=== PATIENT | female | born 1995 | race Caucasian/White ===

== ENCOUNTER 2025-07-12 04:04 | Inpatient (IN) | payer BC, SELFPAY ==
[2025-07-12 04:51] VITALS: BMI 30.4
[2025-07-12] MEDS: LR 1000 IV ×3 (10:30→18:56)
[2025-07-12 11:05] LABS: Hematocrit 40.4 % (37.0-47.0); Hemoglobin 14.5 g/dL (12.0-16.0); Mean Corp Hgb Conc. 35.9 g/dL (33.0-37.0); Mean Corpuscular Volume 88.0 fL (81.0-99.0); Nucleated Red Blood Cells % 0 %; Platelet Count 198 10^3/uL (130-400); Red Cell Dist. Width 12.7 % (11.5-14.5)
[2025-07-12] MEDS: SUBLIMAZE 100 MCG EPIDURAL (11:15)
[2025-07-12] MEDS: FENTANYL/BUPIVACAINE 100 EPIDURAL ×2 (11:16→20:28)
[2025-07-12] MEDS: PITOCIN 30 UNITS/NSS 500 ML IV (19:28)
[2025-07-13] MEDS: PITOCIN 30 UNITS/NSS 500 ML IV (00:01)
[2025-07-13] MEDS: XYLOCAINE-MPF 1% VIAL 30 ML INFIL (00:10)
[2025-07-13] MEDS: TYLENOL 650 MG PO ×4 (03:14→22:05)
[2025-07-13] MEDS: COLACE 100 MG PO ×2 (07:40→20:48)
[2025-07-13] MEDS: PRENATAL PLUS 1 TABLET PO (07:40)
[2025-07-13] MEDS: MOTRIN 600 MG PO ×2 (16:30→22:05)
[2025-07-14] MEDS: TYLENOL 650 MG PO ×4 (04:02→20:15)
[2025-07-14] MEDS: MOTRIN 600 MG PO ×3 (04:02→20:16)
[2025-07-14 04:43] LABS: Hematocrit 34.6 % (37.0-47.0); Hemoglobin 12.2 g/dL (12.0-16.0)
[2025-07-14] MEDS: PRENATAL PLUS 1 TABLET PO (08:55)
[2025-07-14] MEDS: COLACE 100 MG PO ×2 (08:55→20:07)
[2025-07-15] MEDS: TYLENOL 650 MG PO (04:15)
[2025-07-15] MEDS: MOTRIN 600 MG PO ×2 (04:15→10:04)
[2025-07-18 13:39] LABS: Syphilis/T. pallidum Ab Reflex Negative (Negative)
== END 2025-07-15 19:00 | disposition home or self-care (01) | DRG 806 ==
LOC: LDRP 04:04
PROVIDERS: ADMITTING PHYSICIAN Obstetrics & Gynecology; FAMILY PHYSICIAN Physician Assistant Medical; OTHER PHYSICIAN Obstetrics & Gynecology
PROC: 10H07YZ Insertion of Other Device into Products of Conception, Via Natural or Artificial Opening (ICD-10-PCS; 2025-07-12)
PROC: 3E0E77Z Introduction of Electrolytic and Water Balance Substance into Products of Conception, Via Natural or Artificial Opening (ICD-10-PCS; 2025-07-12)
PROC: 10E0XZZ Delivery of Products of Conception, External Approach (ICD-10-PCS; 2025-07-13)
PROC: 0UQG7ZZ Repair Vagina, Via Natural or Artificial Opening (ICD-10-PCS; 2025-07-13)
DX: O48.0 Post-term pregnancy (principal); O71.4 Obstetric high vaginal laceration alone; Z37.0 Single live birth; Z3A.40 40 weeks gestation of pregnancy; O76 Abnormality in fetal heart rate and rhythm complicating labor and delivery; O69.81X0 Labor and delivery complicated by cord around neck, without compression, not applicable or unspecified
CPT/HCPCS: 36415; 85014; 85018; 85025; 86780; 86850; 86900; 86901